=== PATIENT | male | born 1965 | race Caucasian/White ===

== ENCOUNTER 2016-05-17 20:43 | Emergency (ER) | payer SELFPAY ==
[2016-05-17] MEDS ORDERED: NORCO 325 MG-51 TAB PO (21:57)
[2016-05-17] MEDS ORDERED: TAMIFLU 75MG75 MG PO (21:57)
[2016-05-17] MEDS ORDERED: ONDANSETRON HYDR4 M1 PO (21:57)
== END 2016-05-17 22:45 | disposition home or self-care (01) ==
LOC: ED 20:43
DX: J09.X2 Influenza due to identified novel influenza A virus with other respiratory manifestations (principal); F17.210 Nicotine dependence, cigarettes, uncomplicated; F19.90 Other psychoactive substance use, unspecified, uncomplicated

== ENCOUNTER 2016-06-03 02:18 | Emergency (ER) | payer SELFPAY ==
[~2016-06-03 02:18] MED LIST: NORCO 325 MG-51 TAB PO; ONDANSETRON HYDR4 M1 PO; TAMIFLU 75MG75 MG PO
[2016-06-03 02:33] VITALS: BP 107/67
== END 2016-06-03 03:45 ==
LOC: ED 02:18
DX: F10.129 Alcohol abuse with intoxication, unspecified (principal); R45.851 Suicidal ideations; F17.210 Nicotine dependence, cigarettes, uncomplicated; F19.90 Other psychoactive substance use, unspecified, uncomplicated

== ENCOUNTER 2016-06-03 19:11 | Emergency (ER) | payer OTHER | END 2016-06-03 23:20 | LOC: ED 19:11 | DX: R45.851 Suicidal ideations (principal); F17.210 Nicotine dependence, cigarettes, uncomplicated; F10.10 Alcohol abuse, uncomplicated ==

== ENCOUNTER 2016-06-19 04:54 | Emergency (ER) | payer SELFPAY ==
[2016-06-19 15:41] VITALS: BP 78/38
== END 2016-06-19 15:43 ==
LOC: ED 04:54
DX: F32.9 Major depressive disorder, single episode, unspecified (principal); R45.851 Suicidal ideations; F17.210 Nicotine dependence, cigarettes, uncomplicated